=== PATIENT | male | born 1980 | race Caucasian/White ===

== ENCOUNTER → 2017-04-08 | Outpatient (CLI) | payer BC ==
--- NOTE | 2017-04-08 09:54 | DIAGNOSTIC IMAGING REPORT ---
ULTRASOUND SOFT TISSUES NECK CLINICAL HISTORY: Neck swelling. COMPARISON STUDY: No priors. FINDINGS: Real-time, grayscale, and color flow sonography of the soft tissues of the neck is performed bilaterally. There are numerous prominent cervical lymph nodes identified. The largest on the right measures 1.7 x 0.8 x 0.6 cm and the largest on the left measures 2.0 x 1.1 x 1.9 cm. These nodes maintain fatty odell. Survey images of the thyroid glandular abnormality. IMPRESSION: There are numerous prominent/mildly enlarged cervical lymph nodes bilaterally which are likely on a reactive basis. Clinical correlation and clinical follow-up will be required. If these lymph nodes continue to increase in size then a repeat ultrasound should be considered. Electronically signed by: Kasi Sheriff M.D. 04/08/2017 9:52 AM Dictated Date/Time: 04/08/2017 9:50 AM
== END | disposition home or self-care (01) ==
LOC: C.ULTR 09:12
PROVIDERS: ATTEND Family Medicine
DX: R59.9 Enlarged lymph nodes, unspecified (principal)

== ENCOUNTER 2017-05-02 20:23 | Emergency (ER) | payer BC ==
[~2017-05-02] VITALS: Ht 175.3 cm; Wt 86.9 kg
[2017-05-02 20:26] VITALS: TEMP 36.7; Ht 175.3 cm; Wt 86.9 kg
[2017-05-02] MEDS ORDERED: XYLOCAINE 1%/SOD BICARB 20 ML VIAL INFIL STA (20:36)
[2017-05-02] MEDS ORDERED: FLUO10CA48 PO (20:45)
[2017-05-02] MEDS ORDERED: CETI10TA84 PO (20:45)
--- NOTE | 2017-05-02 21:11 | EMERGENCY ROOM VISIT NOTE ---
ED Visit Note First contact with patient: 20:30 Chief Complaint: "Cut finger". History of Present Illness: This patient is a 36-year-old male who presents to the Emergency Department via private vehicle for evaluation of their left second digit laceration. Patient sustained the laceration while carving a piece of wood, when the wood broke and the knife slipped cutting the finger pad of the distal left second digit. They report a moderate amount of bleeding initially. They deny any numbness or tingling into the distal extremity. They report no decreased range of motion of the affected digit. Patient rates his current discomfort as a 2/10. Patient's Tetanus status is believed to be currently up-to-date. Medications: As noted below Allergies: Dust PMH: No pertinent SHx: Patient lives locally. ROS: All pertinent positive and negative review of systems are appropriately documented in the History of Present Illness. Physical Exam: VITAL SIGNS - Vital signs and nursing notes were reviewed. Stable. GENERAL -36-year-old male appearing his stated age who is in no acute distress. Communicates well with provider and answers questions appropriately. SKIN - There is a 1 cm long laceration noted finger pad of the left second digit distally. The edges gape apart with traction. No foreign bodies appreciated. Upon further examination there are no deep structures including vessel, tendon, or bony structures appreciated. There is no active bleeding noted. MUSCULOSKELETAL - Laceration as described above. +5/5 strength appreciated of the affected digit. Full range of motion of the affected digit. NEUROLOGIC - he is neurovascularly intact left second digit. VASCULAR - Capillary refill was brisk. ED Course: Patient was seen and evaluated by myself. Risks and benefits of performing primary wound closure versus no repair were discussed with the patient who verbalizes understanding. Verbal consent was obtained prior to performing the procedure. 5 cc of 1% lidocaine was used to perform a digital block of the left second digit. The wound was cleansed and prepped in the typical sterile fashion utilizing normal saline and Betadine. The wound was sterilely draped. Once proper anesthetization was established, the wound was further examined and demonstrated no deep involvement. The wound was copiously irrigated with normal saline and Betadine. The wound was closed using 4 simple, 5-0 nylon sutures with the wound edges being well approximated. Patient tolerated the procedure well. No complications were met. The wound was cleansed and dressed with a Bacitracin dressing followed by nonstick dressing and Coban. Patient educated on worrisome symptoms for return visit to the Emergency Department. Patient discharged to home in good condition. Current/Historical Medications Scheduled Cetirizine (Zyrtec), 10 MG PO DAILY Fluoxetine (Prozac), 10 MG PO DAILY Allergies Coded Allergies: Dust (Verified Allergy, Intermediate, ITCHY EYES, SNEEZING, RUNNY NOSE, CONGESTION, 05/02/17) Vital Signs Date Time Temp Pulse Resp B/P (MAP) Pulse Ox O2 Delivery O2 Flow Rate FiO2 05/02/17 21:23 71 16 138/71 100 05/02/17 20:26 36.7 69 18 140/83 98 Room Air Departure Information Impression Primary Impression: Laceration Dispostion Home / Self-Care Condition GOOD Referrals No Doctor, Assigned (PCP) Patient Instructions [facility] Additional Instructions Discharge Instructions: You have received 4 sutures on your finger. These sutures are NOT dissolvable and WILL need to be removed by a health care provider in 12-14 days. You can return to the Emergency Department or contact your Primary Care Provider to have the sutures removed. Proper wound care is essential for adequate wound healing and infection prevention. You can shower and clean the wound with soap and water. Do not scour over the wound, pat dry with a towel. Do not submerse the wound (i.e. bathe or dish wash) until the sutures have been removed. You can use an antibiotic ointment with a dressing over the wound for the next 3-4 days. After this time you may leave the wound dry and open to the air. If crust develops over the wound you can use a Q-tip to apply a 1:1 peroxide:water solution to clean the wound. Look for signs of infection of the wound including: increased pain, swelling, foul discharge, streaking, or increased temperature. If any of these are noticed you should return to the Emergency Department for further assessment and treatment. As with any laceration you may have received nerve damage to the surrounding tissues. This damage may or may not be permanent. You should keep the area covered with sunscreen for the first 6 months to 1 year when at risk for exposure to help minimize scarring. You can also use scar reducing creams or Vitamin E oil to help minimize scarring. For pain control, you can use the following [id number] medicines: - Regular strength (325mg/tab) Tylenol (acetaminophen) 2 tabs every 4-6 hours as needed. Do not exceed 12 tablets in a 24 hour period. Avoid taking more than 3 grams (3000 mg) of Tylenol per day. This includes any other sources of acetaminophen you may take on a regular basis. - Regular strength (200 mg/tab) Advil (ibuprofen) 1-2 tabs every 4-6 hours as needed. Do not exceed a dose of 3200 mg per day. Return to the emergency department if your symptoms worsen despite treatment course outlined above.
[2017-05-02 21:23] VITALS: BP 138/71; PULSE 71; O2SAT 100
== END 2017-05-02 21:26 | disposition home or self-care (01) ==
LOC: C.EDB 20:25 → C.EDD 21:26
DX: S61.211A Laceration without foreign body of left index finger without damage to nail, initial encounter (principal); W26.0XXA Contact with knife, initial encounter; Y93.89 Activity, other specified; Z79.899 Other long term (current) drug therapy

== ENCOUNTER 2017-05-13 07:12 | Emergency (ER) | payer BC ==
[~2017-05-13] VITALS: Ht 175.3 cm; Wt 84.6 kg
[~2017-05-13 07:12] MED LIST: CETI10TA84 PO; FLUO10CA48 PO
[2017-05-13 07:18] VITALS: BP 119/70; PULSE 76; TEMP 37; O2SAT 98; Ht 175.3 cm; Wt 84.6 kg
[2017-05-13] MEDS ORDERED: MULT-506 PO (07:33)
[2017-05-13] MEDS ORDERED: SULFAMETHOXAZOLE/TRIMETHOPRIM DS 800/160MG TAB PO STA (07:34)
[2017-05-13] MEDS ORDERED: SULF800T23 PO (07:37)
--- NOTE | 2017-05-13 14:31 | EMERGENCY ROOM VISIT NOTE ---
ED Visit Note First contact with patient: 07:23 CHIEF COMPLAINT: Suture removal This patient returns to the ED today for removal of sutures that were placed 10 days ago. There has been pus drainage from the wound; however no swelling, redness, from the wound. The patient feels like the laceration is healing well. REVIEW OF SYSTEMS: Head: No headache, injury or neck pain. Skin: No rash, new lesions, or masses. General: No fever or chills, fatigue, loss of appetite , or significant recent weight gain or loss. PMH: The patient is healthy; there is no significant medical or surgical history. SOCIAL HISTORY: Patient lives at home. PHYSICAL EXAM: Vital Signs: Reviewed Nurse's notes. There is a sutured wound on the index finger pus that is expressed. There is no erythema, swelling, or tenderness. EMERGENCY DEPARTMENT COURSE: The sutures were removed without any difficulty and there was no separation of the wound edges. Wound culture taken, using shared medical decision making the patient was placed on Bactrim. DIAGNOSIS: Healing laceration and suture removal DISCHARGE INSTRUCTIONS AND TREATMENT: Wash any remaining crusts off of the wound today and resume your normal activities. Current/Historical Medications Scheduled Cetirizine (Zyrtec), 10 MG PO DAILY Fluoxetine (Prozac), 10 MG PO DAILY Multivitamin (Multivitamin), 1 TAB PO DAILY Sulfa/Trimethoprim (Bactrim Ds 800MG/160MG), 1 TAB PO BID Allergies Coded Allergies: Dust (Verified Allergy, Intermediate, ITCHY EYES, SNEEZING, RUNNY NOSE, CONGESTION, 05/13/17) Vital Signs Date Time Temp Pulse Resp B/P (MAP) Pulse Ox O2 Delivery O2 Flow Rate FiO2 05/13/17 07:18 37.0 76 20 119/70 98 Room Air Medications Administered Medications (Trade) Dose Ordered Sig/Edelmira Route Start Time Stop Time Status Last Admin Dose Admin Trimethoprim/ Sulfamethoxazole (Septra Ds 800/ 160MG Tab) 1 tab NOW STAT PO 05/13/17 07:34 05/13/17 07:36 DC 05/13/17 07:45 1 TAB Departure Information Impression Primary Impression: Encounter for removal of sutures Dispostion Home / Self-Care Condition GOOD Prescriptions Sulfa/Trimethoprim (Bactrim Ds 800MG/160MG) Tab 1 TAB PO BID for 10 Days, #20 TAB Prov: Joseph Mota MD 05/13/17 Referrals No Doctor, Assigned (PCP) Forms HOME CARE DOCUMENTATION FORM, School Instructions, Work Instructions, IMPORTANT VISIT INFORMATION Patient Instructions My [facility], ED Wound Check Laceration FU Infec, Wound Culture Additional Instructions Culture results are usually available in approx 48 hours You have been examined and treated today on an emergency basis only. This is not a substitute for, or an effort to provide, complete comprehensive medical care. It is impossible to recognize and treat all injuries or illnesses in a single emergency department visit. It is therefore important that you follow up closely with your PCP. Call as soon as possible for an appointment. Thank you for your time and consideration. I look forward to speaking with you again soon. Please don't hesitate to call us if you have any questions.
== END 2017-05-13 07:47 | disposition home or self-care (01) ==
LOC: C.EDB 07:13 → C.EDA 07:47
DX: S61.208D Unspecified open wound of other finger without damage to nail, subsequent encounter (principal); Z79.899 Other long term (current) drug therapy; X58.XXXD Exposure to other specified factors, subsequent encounter